=== PATIENT | female | born 1965 | race Two or more races ===

== ENCOUNTER 2024-08-03 10:21 | Observation (INO) | payer MEDICAID, SELFPAY ==
[2024-08-03] VITALS (15 sets, daily range): BP systolic 83–118; BP diastolic 59–95; PULSE 50–146; RESP 16–96; TEMP 36.3–36.6; O2SAT 95–99; BMI 14.1; BMI 32.8
--- NOTE | 2024-08-03 10:25 | EKG_ITS ---
[facility] Test Date: 2024-08-03 Pat Name: ROGERS STRONG Department: Room: - Gender: Female Chief Program Officer: : 1965 Requested By: German Loza (VILMA) Order Number: [id number] Reading MD: German Loza (WOOD TANK BUILDER) Measurements Intervals [place] Rate: 136 P: IN: QRS: -5 QRSD: 94 T: 45 QT: 321 QTc: 485 Interpretive Statements ATRIAL FLUTTER/TACHYCARDIA WITH RAPID VENTRICULAR RESPONSE NONSPECIFIC ST & T-WAVE ABNORMALITY ABNORMAL RHYTHM ECG Compared to ECG 05/28/2024 11:35:31 T-wave abnormality now present Intraventricular conduction delay no longer present /store/S0/[id number].pdf
--- NOTE | 2024-08-03 10:27 | XR_ITS ---
Examination: AP chest single view Technique one AP portable upright chest single view Exam date and time: August 03, 2024 1053 hours INDICATIONS: Chest pain today history atrial fibrillation FINDINGS: Normal heart size Accentuation basilar bronchovascular markings. No pulmonary edema or pneumonia Moderate osteopenia IMPRESSION: Basilar bronchitis pattern
[2024-08-03 10:59] LABS: Basophils # (Auto) 0.1 Thou/mm3 (0.0-0.2); Basophils % (Auto) 0 % (0-2.5); Eosinophils % (Auto) 0 % (0-10); Hemoglobin 12.2 g/dL (12.0-16.0); Immature Granulocytes % (Auto) 1 % (0-0); Immature Granulocytes Auto 0.07 Thou/mm3 (0.00-0.00); Lymphocytes # (Auto) 2.7 Thou/mm3 (1.0-4.8); Lymphocytes % (Auto) 18 % (10-50); Mean Corpuscular Hemoglobin 20.7 pg (25.0-35.0); Mean Corpuscular Volume 63 fL (80-100); Monocytes # (Auto) 0.9 Thou/mm3 (0.0-0.8); Monocytes % (Auto) 6 % (0-12); Neutrophils % (Auto) 74 % (37-80); Nucleated Red Blood Cell # 0.14 Thou/mm3 (0.00-0.00); Nucleated Red Blood Cell % 1 /100 WBC (0); Platelet Count 248 Thou/mm3 (140-440); RDW Standard Deviation 34.3 fL (36.4-46.3); Red Blood Count 5.88 Miln/mm3 (4.00-5.20); White Blood Count 14.9 Thou/mm3 (3.6-11.0)
[2024-08-03 11:07] LABS: Alanine Aminotransferase 22 U/L (10-49); Albumin, Serum 4.8 gm/dL (3.5-5.0); Albumin/Globulin Ratio 1.9 (1.2-2.2); Alkaline Phosphatase 93 U/L (46-116); Anion Gap 9 (7-16); Aspartate Amino Transferase 18 U/L (0-34); BUN/Creatinine Ratio 13 Ratio (12-20); Bilirubin,Total 0.9 mg/dL (0.3-1.2); Blood Urea Nitrogen 14 mg/dL (9-23); Calcium 9.7 mg/dL (8.3-10.6); Calcium (Corrected) 9.7 mg/dL (8.5-10.1); Carbon Dioxide 24.3 mMol/L (20.0-31.0); Chloride 106 mMol/L (98-107); Creatinine (Component) 1.1 mg/dL (0.6-1.3); Globulin 2.5 gm/dL (2.3-3.5); Glucose 125 mg/dL (74-106); Magnesium 2.2 mg/dL (1.6-2.6); Osmolality,Calculated 279 (275-295); Potassium 4.2 mMol/L (3.4-5.1); Sodium 139 mMol/L (136-145); Total Protein 7.3 gm/dL (5.7-8.2); Troponin I 0.022 ng/mL (0.0-0.045); eGFR 58 See Note
--- NOTE | 2024-08-03 11:07 | PC.NURSE ---
PT PRESENTS TO THE ED WITH COMPLAINTS OF HIGH HR. PT HAS A HX OF SVT AND AFIB. PER FAMILY SHE HAD A RECENT SURGERY TO TRY AND FIX IT- PT SEES CARDIO IN ANIMAS. PT IS ALERT AND ORIENTED, PLACED ON SENIOR CYTOTECHNOLOGIST, 2 IVS PLACED. EKG DONE AND SHOWN TO MD. NO OTHER COMPLAINTS AT THIS TIME. WILL CON TO MONITOR.
[2024-08-03] MEDS: SODIUM CHLORIDE 0.9% 500 ML 500 ML 999 ML IV ×2 (11:47→14:59)
[2024-08-03] MEDS: DILTIAZEM INJ 5 MG/ML VIAL 5 ML 15 MG IV (11:48)
[2024-08-03] MEDS: DILTIAZEM 30 MG TABLET PO (11:48)
--- NOTE | 2024-08-03 13:58 | EDNOTE_ITS ---
ED General RME/HPI General Chief complaint: Chest Pain Stated complaint: HEART BEATING FAST, HX A-FIB Time Seen by Provider: 08/03/24 11:11 Arrival date/time: 08/03/24 10:21 RME / HPI RME / HPI narrative: 59-year-old female with a history of SVT, atrial fibrillation, status post ablation 3 months ago, who presents to the emergency department with recurrence of palpitations and now she feels generalized weakness and difficulty walking. She denies chest pain. She denies nausea vomiting or diarrhea. She states she has a chronic cough due to her smoking, that has not recently worsened. Related Data Allergies Allergy/AdvReac Type Severity Reaction Status Date / Time No Known Allergies Allergy Verified 08/03/24 10:21 Review of Systems Review of Systems Systems Reviewed: All systems reviewed, normal except as documented Past Medical History Past Medical History CARDIAC: Positive Cardiac Disorders and Atrial Fibrillation; Negative Congestive Heart Failure RESPIRATORY: Negative Chronic Obstructive Pulmonary Disease (COPD) GENITOURINARY: Negative Renal Disease ENDOCRINE: Negative Diabetes Mellitus Type 1 or Diabetes Mellitus Type 2 Social History SMOKING STATUS: Current every day smoker SUBSTANCE USE: does not use ED Exam Narrative Physical exam: GENERAL APPEARANCE: AxOx4, generally well-appearing, no acute distress. HEENT: NC, AT. MMM. EOMI, clear conjunctiva, oropharynx clear. NECK: Supple without lymphadenopathy. No stiffness or restricted ROM. HEART: Normal rate and regular rhythm, normal S1/S1, no m/r/g LUNGS: CTAB, moving air well. No crackles or wheezes are heard. ABDOMEN: Soft, nontender, nondistended with good bowel sounds heard. BACK: No midline C/T/L spine pain or deformity, No CVAT, no obvious deformity. EXTREMITIES: Without cyanosis, clubbing or edema. MUSCULOSKELETAL: FROM of all major joints, no chest tenderness NEUROLOGICAL: Grossly nonfocal. Alert and oriented, moving all 4 extremities. CN not formally tested but appear grossly intact. Observed to ambulate with normal gait. Skin: Warm and dry without any rash. Course Quality Measures none Orders Category Date Time Status Senior Cyber Security Analyst NOW Care 08/03/24 10:25 Active EKG (ED ONLY) *Do not use* NOW Care 08/03/24 10:25 Completed Insert IV NOW Care 08/03/24 10:28 Active Consult to Cardiology Stat Cons 08/03/24 14:22 Ordered EKG (ED Only) Stat Exams 08/03/24 10:25 Draft XR chest 1V portable Stat Exams 08/03/24 10:27 Completed CBC Stat Lab 08/03/24 10:40 Completed Comprehensive Metabolic Panel Stat Lab 08/03/24 10:40 Completed Magnesium Stat Lab 08/03/24 10:40 Completed Partial Thromboplastin Time AM DRAW Lab 08/05/24 05:00 Ordered Partial Thromboplastin Time Stat Lab 08/03/24 15:33 Completed Prothrombin Time with INR AM DRAW Lab 08/05/24 05:00 Ordered Prothrombin Time with INR Stat Lab 08/03/24 15:33 Completed Troponin I Stat Lab 08/03/24 10:40 Completed Troponin I Stat Lab 08/03/24 16:01 Completed Amiodarone 150 mg Ivpb [Nexterone Ivpb] Med 08/03/24 14:11 Discontinued 150 mg in 100 ml IV 600 mls/hr Amiodarone 360 mg Ivpb [Nexterone Ivpb] Med 08/03/24 20:09 Discontinued 360 mg in 200 ml IV 16.667 mls/hr Amiodarone 360 mg Ivpb [Nexterone Ivpb] Med 08/03/24 14:09 Discontinued 360 mg in 200 ml IV 33.333 mls/hr Diltiazem Inj [Cardizem Inj] Med 08/03/24 11:27 Discontinued 15 mg IV X1 ONE Diltiazem [Cardizem] Med 08/03/24 11:27 Discontinued 30 mg PO X1 ONE Heparin Inj Med 08/03/24 14:54 Discontinued 2,450 unit IV X1 ONE Heparin/D5w 25K 250 ML Ivpb [Heparin in D5w Ivpb] Med 08/03/24 15:00 Discontinued 25,000 unit in 250 ml IV 12 units/kg/hr Sodium Chloride 0.9% 500 ml [Ns] 500 ml Med 08/03/24 11:30 Discontinued IV 999 mls/hr Sodium Chloride 0.9% 500 ml [Ns] 500 ml Med 08/03/24 14:09 Discontinued IV 999 mls/hr Reevaluation(s) Reevaluation #1: After diltiazem push and oral diltiazem, 500 L IV fluids, patient still feels very tired, unable to get out of bed. Heart rate is 130, systolic blood pressures in the 90s with a map of 72. Time: 14:00 Vital Signs Vital signs: Vital Signs Temperature 97.8 F 08/03/24 10:35 Pulse Rate 146 H 08/03/24 10:35 Respiratory Rate 18 08/03/24 10:35 Blood Pressure 85/62 L 08/03/24 10:35 Pulse Oximetry (%) 99 08/03/24 10:35 Oxygen Delivery Method Room Air 08/03/24 10:35 SpO2 99% on room air, not hypoxic MDM Patient data External records reviewed:: [facility] previous records Clinical information provided by:: patient and spouse Social determinants that could affect healthcare access:: none Patient has the following chronic illnesses:: Atrial fibrillation How is presenting disease/condition affected by chronic disease/condition?: c aused by Evaluation data The following diagnostics were reviewed and interpreted by me:: lab results, radiology exam(s) and EKG tracing(s) Lab and/or radiology exams considered but not ordered:: None Interpretation Summary: As per narrative Medications Medications considered but not ordered:: None Medication administrations:: Medication Administration History Acetaminophen (Acetaminophen 325 Mg Tablet) 650 mg PO Q6H PRN PRN Reason: Pain and Fever >101.5 Stop: 09/02/24 15:02 Last Admin: 08/03/24 23:00 Dose: 650 mg Documented By: TRINA Amiodarone HCl (Amiodarone Hcl 200 Mg Tablet) 200 mg PO QDAY [facility] Stop: 09/03/24 08:59 Ondansetron HCl (Ondansetron Inj 2 Mg/Ml Inj 2 Ml) 4 mg IV Q6H PRN; Protocol PRN Reason: NAUSEA OR VOMITING Stop: 09/02/24 15:02 Pantoprazole Sodium (Pantoprazole 40 Mg Tablet) 40 mg PO QDAY POWER Stop: 09/02/24 15:14 Last Admin: 08/03/24 17:21 Dose: 40 mg Documented By: JOSUE Sennosides (Senna Tablet) 1 tab PO QDAY PRN; Protocol PRN Reason: constipation Stop: 09/02/24 15:02 Discontinued Medications Diltiazem HCl (Diltiazem 30 Mg Tablet) 30 mg PO X1 ONE Stop: 08/03/24 11:28 Last Admin: 08/03/24 11:48 Dose: 30 mg Documented By: JOSUE Diltiazem HCl (Diltiazem Inj 5 Mg/Ml Vial 5 Ml) 15 mg IV X1 ONE Stop: 08/03/24 11:28 Last Admin: 08/03/24 11:48 Dose: 15 mg Documented By: JOSUE Guaifenesin (Guaifenesin Syrup 200 Mg/10 Ml Udc) 100 mg PO X1 ONE; Protocol Stop: 08/03/24 22:48 Last Admin: 08/03/24 23:00 Dose: 100 mg Documented By: TRINA Heparin Sodium (Porcine) (Heparin Sod Inj 5000 Unit/Ml Vial) 2,450 unit 60 unit/kg (2450 unit) IV X1 ONE; Protocol Stop: 08/03/24 14:55 Last Admin: 08/03/24 17:17 Dose: 2,450 unit Documented By: JOSUE Co-signed By: Sodium Chloride (Ns) 500 mls @ 999 mls/hr IV .Q31M ONE Stop: 08/03/24 12:00 Last Infusion: 08/03/24 13:25 Dose: Infused Documented By: Admin: 08/03/24 11:47 Dose: 999 mls/hr Documented By: JOSUE Sodium Chloride (Ns) 500 mls @ 999 mls/hr IV .Q31M ONE Stop: 08/03/24 14:39 Last Infusion: 08/03/24 17:12 Dose: Infused Documented By: Admin: 08/03/24 14:59 Dose: 999 mls/hr Documented By: JOSUE Amiodarone HCl/Dextrose (Nexterone Ivpb) 150 mg in 100 mls @ 600 mls/hr IV .Q10M ONE Stop: 08/03/24 14:20 Last Infusion: 08/03/24 17:12 Dose: Infused Documented By: Admin: 08/03/24 14:49 Dose: 600 mls/hr Documented By: ARF Amiodarone HCl/Dextrose (Nexterone Ivpb) 360 mg in 200 mls @ 33.333 mls/hr IV .Q6H ONE Stop: 08/03/24 20:08 Last Infusion: 08/03/24 19:06 Dose: 0 mls/hr Documented By: Admin: 08/03/24 14:57 Dose: 33.333 mls/hr Documented By: ARF Amiodarone HCl/Dextrose (Nexterone Ivpb) 360 mg in 200 mls @ 16.667 mls/hr IV .Q12H POWER Stop: 08/04/24 20:08 Heparin Sodium/Dextrose (Heparin In D5w Ivpb) 25,000 unit in 250 mls @ 4.899 mls/hr IV .Q24H POWER; Protocol Stop: 08/17/24 14:59 Last Titration: 08/03/24 18:53 Dose: 0 units/kg/hr, 0 mls/hr Documented By: ARF Co-signed By: ASUNCION Admin: 08/03/24 17:18 Dose: 12 units/kg/hr, 4.899 mls/hr Documented By: ARF Co-signed By: DO see above Consultations Consultation(s) initiated? (list below): Yes Consultation #1 (Physician, Specialty, Details): Cardiology, Dr. Fuentes, we discussed case at length and recommends trying either metoprolol or diltiazem, if symptoms improve she can be discharged to double her amiodarone and follow-up with Dr. Haor Time: 11:20 Consultation #2 (Physician, Specialty, Details): Cardiology, Dr. Mayer, we reviewed her response to diltiazem and IV fluids, or in fact the lack of response, persistent hypotension, and recommend starting amiodarone drip and admit Time: 14:00 Diagnosis Differential Diagnosis ED Complaint MDM: A-fib with RVR, atrial flutter, SVT, hypokalemia, hypomagnesemia Most likely diagnosis given after review of the tests above:: As noted below. Admission Indicated Admission indicated?: indicated Explain why admission is indicated or not indicated:: Patient has no emergent abnormalities on his studies and can be managed on an outpatient basis. Admission Request Was there a request for admission?: Yes Admission Attestation Admission request attestation: Discussed case with [Dent] from Hospitalist service regarding admission. Discussed patients ED course, exam findings, labs, and radiology results. The Hospitalist [agrees] to accept the patient for admission. Disposition Plan Disposition Plan: Admit Medical Decision Making Differential Diagnosis Differential Diagnosis: A-fib with RVR, atrial flutter, SVT, hypokalemia, hypomagnesemia Lab Data 08/04/24 03:36 08/04/24 03:36 Labs: Lab Results 08/03/24 Range/Units 10:40 WBC 14.9 H (3.6-11.0) Thou/mm3 RBC 5.88 H (4.00-5.20) Miln/mm3 Hgb 12.2 (12.0-16.0) g/dL Hct 37.0 (36.0-46.0) % MCV 63 L (80-100) fL MCH 20.7 L (25.0-35.0) pg MCHC 33.0 (31.0-37.0) g/dl RDW Std Deviation 34.3 L (36.4-46.3) fL Plt Count 248 (140-440) Thou/mm3 Neut % (Auto) 74 (37-80) % Lymph % (Auto) 18 (10-50) % [place] % (Auto) 6 (0-12) % Eos % (Auto) 0 (0-10) % Baso % (Auto) 0 (0-2.5) % Neut # (Auto) 11.0 H (1.8-7.7) Thou/mm3 Lymph # (Auto) 2.7 (1.0-4.8) Thou/mm3 [place] # (Auto) 0.9 H (0.0-0.8) Thou/mm3 Eos # (Auto) 0.0 (0.0-0.5) Thou/mm3 Baso # (Auto) 0.1 (0.0-0.2) Thou/mm3 Immature Gran # (Auto) 0.07 H (0.00-0.00) Thou/mm3 Absolute Nucleated RBC 0.14 H (0.00-0.00) Thou/mm3 Immature Gran % 1 H (0-0) % Nucleated RBC % 1 H (0) /100 WBC Sodium 139 (136-145) mMol/L Potassium 4.2 (3.4-5.1) mMol/L Chloride 106 (98-107) mMol/L Carbon Dioxide 24.3 (20.0-31.0) mMol/L Anion Gap 9 (7-16) BUN 14 (9-23) mg/dL Creatinine 1.1 (0.6-1.3) mg/dL Estim Creat Clear Calc Not Performed. eGFR 58 L (60 - ) See Note BUN/Creatinine Ratio 13 (12-20) Ratio Glucose 125 H (74-106) mg/dL Calculated Osmolality 279 (275-295) Calcium 9.7 (8.3-10.6) mg/dL Corrected Calcium 9.7 (8.5-10.1) mg/dL Magnesium 2.2 (1.6-2.6) mg/dL Total Bilirubin 0.9 (0.3-1.2) mg/dL AST 18 (0-34) U/L ALT 22 (10-49) U/L Alkaline Phosphatase 93 (46-116) U/L Troponin I 0.022 (0.0-0.045) ng/mL Total Protein 7.3 (5.7-8.2) gm/dL Albumin 4.8 (3.5-5.0) gm/dL Globulin 2.5 (2.3-3.5) gm/dL Albumin/Globulin Ratio 1.9 (1.2-2.2) Critical Care Time Critical Care Time Critical Care Time: Yes Total Critical Care Time (min.): 35 Attestation: Excluding billable procedures for the rapid response, analysis, management, deliberation with specialist, treatment, and documentation to prevent the very possible risk of cardiovascular decompensation and/or Discharge Plan Plan Patient Disposition: Admit Acute Care w/in Hospital Problem List Clinical Impression: Atrial flutter with rapid ventricular response, Weakness
[2024-08-03] MEDS: AMIODARONE 150 MG IVPB 150 MG/100 ML BAG 600 MG IV (14:49)
[2024-08-03] MEDS: AMIODARONE 360 MG IVPB 360 MG/200 ML BAG 33.333 MG IV (14:57)
--- NOTE | 2024-08-03 15:47 | ESCONSULT_ITS ---
<Statement entered by Asif Norton MD - 08/04/24 12:17> The patient is evaluated by me in the emergency room by me in the emergency room along with resident physician PGY 2 Dr. Harveyiq The patient has history of atrial flutter paroxysmal episodes with ablation history came to the hospital atrial flutter rapid rate difficult to control amiodarone IV given converted to sinus rhythm bradycardia stable the patient remained stable can be discharged tomorrow to have outpatient follow-up with almond pan finisher she already has. Mild troponin elevation not unusual with tachycardia type II troponin no further workup needed. I evaluated the patient all essential complaints the consultation report is reviewed agree with the treatment plan recommendations HPI Data of Consult Consult date: 08/03/24 Requesting Physician: Baljeet Fuentes DO Admitting Provider: Baljeet Fuentes DO Attending Provider: Baljeet Fuentes DO Primary Care Provider: Hugo Michaels MD Consult Narrative Reason for consult: Atrial flutter with RVR History of present illness: This 59-year-old female with a history of SVT, atrial fibrillation, status post ablation 3 months ago, who presents to the emergency department with recurrence of palpitations and now she feels generalized weakness and difficulty walking. She denies chest pain. She denies nausea vomiting or diarrhea. She states she has a chronic cough due to her smoking, that has not recently worsened. In the ED, patient was mildly hypotensive with blood pressure of 85/62, pulse 146, respiratory rate 18 and afebrile. She was saturating well on room air. Labs showed leukocytosis, stable hemoglobin and platelets. Chemistry panel showed stable electrolytes. Troponin I went up from 0.02 to 0.087. Thyroid functions within normal limits. EKG showed heart rate 136 with atrial flutter. QTc 485. PMH: As above Allergies: NKDA Home medications:Amiodarone 200 mg once a day, valsartan 80 mg once a day, folic acid 1 mg once a day, was not taking Eliquis 08/03/2024: Patient was seen and examined at the bedside. Patient reported having palpitations and generalized weakness. She was not taking anticoagulation for long time. Patient was given diltiazem 30 mg p.o. and IV diltiazem 15 mg x 1 in the ED. Cardiology team was consulted for atrial flutter with RVR. Patient was started on heparin drip and amiodarone per protocol however she converted to sinus rhythm and went bradycardia therefore amiodarone and heparin was discontinued. Primary team was updated that she can be discharged tomorrow on her home amiodarone 200 mg PO once a day and no need of anticoagulation as her [id number] score is 1. She may need another ablation if she goes in A. Fib with Rvr. No plans for cardioversion. cc:: cc: Baljeet Fuentes, Review of Systems Review of Systems Systems Reviewed: All systems reviewed, normal except as documented Past Medical History Past Medical History CARDIAC: Positive Cardiac Disorders; Negative Congestive Heart Failure RESPIRATORY: Negative Chronic Obstructive Pulmonary Disease (COPD) GENITOURINARY: Negative Renal Disease ENDOCRINE: Negative Diabetes Mellitus Type 1 or Diabetes Mellitus Type 2 Social History SMOKING STATUS: Current every day smoker SUBSTANCE USE: does not use Exam Vital Signs Temp Pulse Resp BP Pulse Ox O2 Del Method 97.3 F 121 H 19 102/73 95 Room Air 08/03/24 15:17 08/03/24 15:17 08/03/24 15:17 08/03/24 15:17 08/03/24 15:17 08/03/24 15:17 Narrative Exam GENERAL APPEARANCE: AxOx4, generally well-appearing female no acute distress. HEENT: NC, AT. MMM. EOMI, clear conjunctiva, oropharynx clear. NECK: Supple without lymphadenopathy. No stiffness or restricted ROM. HEART: Irregular rate and irregular rhythm, normal S1/S2, no m/r/g LUNGS: CTAB, moving air well. No crackles or wheezes are heard. ABDOMEN: Soft, nontender, nondistended with good bowel sounds heard. BACK: No CVAT, no obvious deformity. EXTREMITIES: Without cyanosis, clubbing or edema. NEUROLOGICAL: Grossly nonfocal. Alert and oriented, moving all 4 extremities. CN not formally tested but appear grossly intact. Observed to ambulate with normal gait. Skin: Warm and dry without any rash. Psych: Appropriate mood and affect Results Labs 08/03/24 10:40 08/03/24 10:40 Labs: Short CBC 08/03/24 Range/Units 10:40 WBC 14.9 H (3.6-11.0) Thou/mm3 Hgb 12.2 (12.0-16.0) g/dL Hct 37.0 (36.0-46.0) % Plt Count 248 (140-440) Thou/mm3 BMP 08/03/24 10:40 Sodium 139 Potassium 4.2 Chloride 106 Carbon Dioxide 24.3 BUN 14 Creatinine 1.1 Glucose 125 H Calcium 9.7 Cardiac Enzymes 08/03/24 Range/Units 10:40 Troponin I 0.022 (0.0-0.045) ng/mL Liver Function 08/03/24 Range/Units 10:40 Total Bilirubin 0.9 (0.3-1.2) mg/dL AST 18 (0-34) U/L ALT 22 (10-49) U/L Alkaline Phosphatase 93 (46-116) U/L Albumin 4.8 (3.5-5.0) gm/dL Quality Measures Quality Measures none Medications Home Medications and Allergies Allergies Allergy/AdvReac Type Severity Reaction Status Date / Time No Known Allergies Allergy Verified 08/03/24 10:21 Visit Medications Acetaminophen (Acetaminophen 325 Mg Tablet) 650 mg PO Q6H PRN PRN Reason: Pain and Fever >101.5 Stop: 09/02/24 15:02 Amiodarone HCl/Dextrose (Nexterone Ivpb) 360 mg in 200 mls @ 33.333 mls/hr IV .Q6H ONE Stop: 08/03/24 20:08 Last Admin: 08/03/24 14:57 Dose: 33.333 mls/hr Amiodarone HCl/Dextrose (Nexterone Ivpb) 360 mg in 200 mls @ 16.667 mls/hr IV .Q12H POWER Stop: 08/04/24 20:08 Heparin Sodium/Dextrose (Heparin In D5w Ivpb) 25,000 unit in 250 mls @ 4.899 mls/hr IV .Q24H POWER; Protocol Stop: 08/17/24 14:59 Ondansetron HCl (Ondansetron Inj 2 Mg/Ml Inj 2 Ml) 4 mg IV Q6H PRN; Protocol PRN Reason: NAUSEA OR VOMITING Stop: 09/02/24 15:02 Pantoprazole Sodium (Pantoprazole 40 Mg Tablet) 40 mg PO QDAY POWER Stop: 09/02/24 15:14 Sennosides (Senna Tablet) 1 tab PO QDAY PRN; Protocol PRN Reason: constipation Stop: 09/02/24 15:02 Discontinued Medications Diltiazem HCl (Diltiazem 30 Mg Tablet) 30 mg PO X1 ONE Stop: 08/03/24 11:28 Last Admin: 08/03/24 11:48 Dose: 30 mg Diltiazem HCl (Diltiazem Inj 5 Mg/Ml Vial 5 Ml) 15 mg IV X1 ONE Stop: 08/03/24 11:28 Last Admin: 08/03/24 11:48 Dose: 15 mg Heparin Sodium (Porcine) (Heparin Sod Inj 5000 Unit/Ml Vial) 2,450 unit 60 unit/kg (2450 unit) IV X1 ONE; Protocol Stop: 08/03/24 14:55 Sodium Chloride (Ns) 500 mls @ 999 mls/hr IV .Q31M ONE Stop: 08/03/24 12:00 Last Infusion: 08/03/24 13:25 Dose: Infused Sodium Chloride (Ns) 500 mls @ 999 mls/hr IV .Q31M ONE Stop: 08/03/24 14:39 Last Admin: 08/03/24 14:59 Dose: 999 mls/hr Amiodarone HCl/Dextrose (Nexterone Ivpb) 150 mg in 100 mls @ 600 mls/hr IV .Q10M ONE Stop: 08/03/24 14:20 Last Admin: 08/03/24 14:49 Dose: 600 mls/hr Assessment & Plan Plan This 59-year-old female with a history of SVT, atrial fibrillation, status post ablation 3 months ago, who presents to the emergency department with recurrence of palpitations and now she feels generalized weakness and difficulty walking.Chemistry panel showed stable electrolytes. Troponin I went up from 0.02 to 0.087. EKG showed heart rate 136 with atrial flutter. QTc 485. Cardiology team consulted for atrial flutter with RVR. # Atrial flutter with RVR not on anticoagulation reverted to sinus rhythm # Hx of SVT and A-fib status post ablation 3 months ago ? Patient presented with palpitations and generalized weakness. In the ED, patient was hypotensive, tachycardic pulse 146. She was afebrile and saturating well on room air. ? EKG showed atrial flutter with heart rate 136, QTc 485. ? In the ED, patient was given diltiazem 15 mg x 1 IV and diltiazem 30 mg p.o. x 1. Heart remained uncontrolled. ? Troponin I was negative on admission up trended to 0.087. Plan: ? Initially was on heparin drip and amiodarone per protocol however she converted to sinus rhythm and went bradycardia therefore amiodarone and heparin was discontinued. Primary team was updated that she can be discharged tomorrow on her home amiodarone 200 mg PO once a day and no need of anticoagulation as her [id number] score is 1. She may need another ablation if she goes in A. Fib with Rvr. No plans for cardioversion. ? Replete electrolytes as necessary ? Keep magnesium above 2 and potassium above 4 ? Trend troponin I and stop trended once downtrended #NSTEMI Type II likely supply demand ischemia # Leukocytosis Rest of the management as per primary care team. Thank you very much for consulting cardiology team. No plans for cardioversion. DC Amiodarone and Heparin drip. Pt can D/C on amiodarone 200 mg once a day tomorrow. Plan of care discussed with instructional developer, Dr. Errol Koroma MD, PGY 2
--- NOTE | 2024-08-03 16:10 | PD.RESHP ---
Documentation for date of: 08/03/24 [facility] History of Present Illness Chief complaint: Atrial fibrillation with RVR History of present illness: Ms. Bejarano is a 59-year-old hebrew speaking female with past medical history of atrial fibrillation, hypertension and thyroid nodule who presented to [facility] with a chief complaint of palpitations. Patient reported that her symptoms started at 2 AM earlier during the day when she started experiencing palpitations in her chest and had some shortness of breath along with chest pain. Patient complained of progression of symptoms and she presented to the ED, in ED her EKG was significant for atrial fibrillation. Patient seems to be in acute distress secondary to atrial fibrillation, complains of headaches, she reports following up with Dr. Joseluis Michaels employee health nurse in [place] who did not an ablation for atrial fibrillation about 1 month ago and she has an appointment with her primary employee health nurse in a.m. Cardiology was consulted in emergency department and patient was started on amiodarone drip and heparin drip with the possibility of electrocardioversion in a.m. if patient does not convert. Patient otherwise denies any other medical problems, denies any history of stroke and reports compliance with her medications at home that are Valsartan, Eliquis and amiodarone. ED Course: ED Vitals: On presentation in ED BP 85/62, P146, RR 18, temp 97.8, O2 sat 99 on room air ED Labs: ED labs significant for WBC 14.9, RBC 5.88, MCV 63, MCH 20.7, GFR 58, glucose 125. ED Imaging: Chest x-ray in ED shows bronchitis pattern, EKG significant for atrial fibrillation ED Treatment: Patient was given diltiazem 30 mg p.o. and diltiazem 15 mg IV was given about a liter of NS. Cardiology was consulted and patient was started on amiodarone drip. Review of Systems Review of Systems Narrative Review of Systems: ROS: -CONSTITUTIONAL: Denies weight loss, fever and chills. -HEENT: Denies changes in vision and hearing. Positive for headache -RESPIRATORY: Denies cough. Positive for shortness of breath -CV: Positive for palpitations and Chest Pain. -GI: Denies abdominal pain, nausea, vomiting,constipation and diarrhea. -: Denies dysuria and urinary frequency. -MSK: Denies myalgia and joint pain. -SKIN: Denies rash and pruritus. -NEUROLOGICAL: Denies headache and syncope. -PSYCHIATRIC: Denies recent changes in mood. Denies anxiety and depression. Past Medical History Past Medical History Comments PMH COMMENT: PMH: Positive for hypertension and atrial fibrillation PSHx: Ablation surgery for A-fib 1 month ago Allergies: No known allergies Social history: -Smoking: Denies -Alcohol Use: Denies -Illicit Drug Use: Denies -Martial Status: Exam Vital Signs Temp Pulse Resp BP Pulse Ox O2 Del Method 97.3 F 121 H 19 102/73 95 Room Air 08/03/24 15:17 08/03/24 15:17 08/03/24 15:17 08/03/24 15:17 08/03/24 15:17 08/03/24 15:17 Narrative Exam Physical Exam General: Awake and in no acute distress. Conversational and non-toxic appearing. HEENT: Normocephalic, atraumatic, mucous membranes moist. Bounding carotid pulses noted. Heart: Irregular rate and A-fib rhythm, no murmurs. Lungs: Clear to auscultation with no wheezing or crackles. Abdomen: Soft, nondistended, nontender, positive bowel sounds. ?No guarding or rebound tenderness. Neurologic: Alert and oriented x3, no gross neurological deficit, and patient able to move all 4 extremities. Extremities: No edema. Skin: No rash or ecchymoses. Results: Labs 08/03/24 10:40 08/03/24 10:40 Labs: Short CBC 08/03/24 Range/Units 10:40 WBC 14.9 H (3.6-11.0) Thou/mm3 Hgb 12.2 (12.0-16.0) g/dL Hct 37.0 (36.0-46.0) % Plt Count 248 (140-440) Thou/mm3 BMP 08/03/24 10:40 Sodium 139 Potassium 4.2 Chloride 106 Carbon Dioxide 24.3 BUN 14 Creatinine 1.1 Glucose 125 H Calcium 9.7 Cardiac Enzymes 08/03/24 Range/Units 10:40 Troponin I 0.022 (0.0-0.045) ng/mL Liver Function 08/03/24 Range/Units 10:40 Total Bilirubin 0.9 (0.3-1.2) mg/dL AST 18 (0-34) U/L ALT 22 (10-49) U/L Alkaline Phosphatase 93 (46-116) U/L Albumin 4.8 (3.5-5.0) gm/dL Quality Measures Quality Measures VTE prophylaxis Medications Home Medications and Allergies Allergies Allergy/AdvReac Type Severity Reaction Status Date / Time No Known Allergies Allergy Verified 08/03/24 10:21 Visit Medications Acetaminophen (Acetaminophen 325 Mg Tablet) 650 mg PO Q6H PRN PRN Reason: Pain and Fever >101.5 Stop: 09/02/24 15:02 Amiodarone HCl/Dextrose (Nexterone Ivpb) 360 mg in 200 mls @ 33.333 mls/hr IV .Q6H ONE Stop: 08/03/24 20:08 Last Admin: 08/03/24 14:57 Dose: 33.333 mls/hr Amiodarone HCl/Dextrose (Nexterone Ivpb) 360 mg in 200 mls @ 16.667 mls/hr IV .Q12H POWER Stop: 08/04/24 20:08 Heparin Sodium/Dextrose (Heparin In D5w Ivpb) 25,000 unit in 250 mls @ 4.899 mls/hr IV .Q24H POWER; Protocol Stop: 08/17/24 14:59 Ondansetron HCl (Ondansetron Inj 2 Mg/Ml Inj 2 Ml) 4 mg IV Q6H PRN; Protocol PRN Reason: NAUSEA OR VOMITING Stop: 09/02/24 15:02 Pantoprazole Sodium (Pantoprazole 40 Mg Tablet) 40 mg PO QDAY POWER Stop: 09/02/24 15:14 Sennosides (Senna Tablet) 1 tab PO QDAY PRN; Protocol PRN Reason: constipation Stop: 09/02/24 15:02 Discontinued Medications Diltiazem HCl (Diltiazem 30 Mg Tablet) 30 mg PO X1 ONE Stop: 08/03/24 11:28 Last Admin: 08/03/24 11:48 Dose: 30 mg Diltiazem HCl (Diltiazem Inj 5 Mg/Ml Vial 5 Ml) 15 mg IV X1 ONE Stop: 08/03/24 11:28 Last Admin: 08/03/24 11:48 Dose: 15 mg Heparin Sodium (Porcine) (Heparin Sod Inj 5000 Unit/Ml Vial) 2,450 unit 60 unit/kg (2450 unit) IV X1 ONE; Protocol Stop: 08/03/24 14:55 Sodium Chloride (Ns) 500 mls @ 999 mls/hr IV .Q31M ONE Stop: 08/03/24 12:00 Last Infusion: 08/03/24 13:25 Dose: Infused Sodium Chloride (Ns) 500 mls @ 999 mls/hr IV .Q31M ONE Stop: 08/03/24 14:39 Last Admin: 08/03/24 14:59 Dose: 999 mls/hr Amiodarone HCl/Dextrose (Nexterone Ivpb) 150 mg in 100 mls @ 600 mls/hr IV .Q10M ONE Stop: 08/03/24 14:20 Last Admin: 08/03/24 14:49 Dose: 600 mls/hr Assessment & Plan Plan Assessment and plan Summary:Ms. Bejarano is a 59-year-old hebrew speaking female with past medical history of atrial fibrillation, hypertension and thyroid nodule who presented to [facility] with a chief complaint of palpitations. Patient admitted for atrial fibrillation with RVR. # Palpitations # Atrial fibrillation with RVR # Chest pain # NSTEMI type I versus type II # Hypertension -Patient presented with chief complaint of palpitations that started at 2 AM in morning, patient also complains of chest pain shortness of breath and pressure-like sensation in the chest. -Patient's heart rate on presentation in ED was 146, EKG showed A-fib with RVR, patient has history of atrial fibrillation. -Patient had ablation for A-fib about a month ago, is taking amiodarone 200 once daily at home, patient on Eliquis 5 mg twice daily, last dose this morning -Patient was given diltiazem 30 mg p.o. and 15 mg IV in ED, cardiology was consulted patient started on amiodarone drip. -Initial troponin in ED was negative, repeat positive for 0.087. -Patient takes valsartan at home 80 mg for hypertension Plan: -Continue amiodarone drip -Started on heparin drip, given heparin loading dose -N.p.o. after midnight, possibility of cardioversion tomorrow -Monitor vitals closely -Consulted cardiology Dr. Asif Norton, appreciate recommendations -Telemonitoring -Trend troponin every 6 hours -Hold valsartan, blood pressure soft -Follow hemoglobin A1c, TSH, free T4 and lipid panel in a.m. -Monitor CBC CMP # Microcytic hypochromic anemia -Consider outpatient workup -Follow CBC in a.m. DVT prophylaxis: Heparin drip GI prophylaxis: Not indicated Diet: Cardiac diet, n.p.o. after midnight Lines: Peripheral IV Code status: Full code Case discussed with Attending Dr. Alfredo Dent PGY1 Attending Provider Attestation/Addendum I have discussed and was present for the essential components of the history, physical examination, diagnosis, and treatment plan with the resident. I agree with the patient's care as documented by the resident and amended herein by me. Felice Fuentes DO. Patient seen and evaluated in the emergency department. In short, patient is a 84-[id number]-year-old German speaking female with a significant past medical history of atrial fibrillation status post ablation approximately 1 month ago, hypertension and thyroid nodule, presented to the ED with chief complaints of palpitations. Her symptoms began approximately 2 AM earlier in the day. In the ED, the patient was initially hypotensive with a BP of 85/62, pulse rate 146, significant labs included WBC of 14.9 with left shift, BMP largely unremarkable, troponin did slightly elevated at approximately 1600 at 0.087, chest x-ray demonstrated basilar bronchitis pattern and EKG demonstrated an atrial tachycardia, and seeming to go in and out of atrial fibrillation. Patient also had bounding carotids on physical examination and was visibly in distress. Of note the patient apparently had an appointment tomorrow with her belt changer, her has the name of the physician. Patient subsequently admitted for atrial fibrillation/flutter and NSTEMI, likely type II. Cardiology was consulted by the ED, the patient was eventually placed on an amiodarone drip in which she did become rate controlled, she actually became a bit bradycardic, cardiology notified. Per cardiology, the patient was also to be started on heparin drip. Of note, the patient does take Eliquis at home, she states she takes 2.5 mg however chart review states 5 mg twice daily as prescribed. Cardiology also plans for cardioversion tomorrow morning if needed. Of note, the patient does have an apparent thyroid nodule which her son stated she was going to have part of her thyroid removed. TSH ordered to evaluate. Will keep magnesium greater than 2, potassium greater than 4, n.p.o. after midnight. Although this document has been carefully reviewed, there may still be some phonetic and other typographical errors. These errors are purely grammatical due to imperfections in the software program and should not be construed in any way to compromise the substance of the patient's medical care during this visit.
[2024-08-03 16:21] LABS: INR 1.1 (0.9-1.3); Partial Thromboplastin Time 29.3 Seconds (22.0-36.0); Prothrombin Time 11.7 Seconds (9.0-12.2)
--- NOTE | 2024-08-03 16:33 | PC.NURSE ---
PT converted into SR. notified dr graves. pt feeling better, up to commode
[2024-08-03 16:35] LABS: Free T4 (Free Thyroxine) 1.52 ng/dL (0.89-1.76); Thyroid Stimulating Hormone 1.22 uIU/mL (0.55-4.78)
[2024-08-03 16:37] LABS: Troponin I 0.087 ng/mL (0.0-0.045)
--- NOTE | 2024-08-03 16:42 | PC.NURSE ---
PT SINUS GAMALIEL - CALLED DR TAVERA TO NOTIFY. HE WILL CALL DR PARRY AND UPDATE
[2024-08-03] MEDS: HEPARIN SOD INJ 5000 UNIT/ML VIAL 2450 UNIT IV (17:17)
[2024-08-03] MEDS: Heparin/D5w 25K 250 ML Ivpb 25,000 UNIT/250 ML BAG 4.899 UNIT IV (17:18)
[2024-08-03] MEDS: PANTOPRAZOLE 40 MG TABLET PO (17:21)
--- NOTE | 2024-08-03 18:52 | PC.NURSE ---
DR PARRY CAME TO SEE PT. HE ORDERED TO DC HEPARIN DRIP WELL AMNIODERONE DRIP. PT WILL BE ADMITTED AND MOST LIKEY DC IN THE AM.
[2024-08-03 20:04] LABS: Free T4 (Free Thyroxine) 1.38 ng/dL (0.89-1.76)
--- NOTE | 2024-08-03 22:10 | PC.NURSE ---
REPORT GIVEN TO BERNABE WALLACE. ALL QUESTIONS ASKED AND ANSWERED. PATIENT TRANSFERRED TO ROOM BY STAFF. NO DISTRESS NOTED.
[2024-08-03 22:39] LABS: Troponin I 0.289 ng/mL (0.0-0.045)
[2024-08-03] MEDS: guaiFENesin SYRUP 200 MG/10 ML UDC 100 MG PO (23:00)
[2024-08-03] MEDS: ACETAMINOPHEN 325 MG TABLET 650 MG PO (23:00)
[2024-08-04] VITALS (7 sets, daily range): BP systolic 105–136; BP diastolic 64–96; PULSE 50–54; RESP 14–94; TEMP 36–36.4; O2SAT 96–99
[2024-08-04 04:20] LABS: Basophils # (Auto) 0.1 Thou/mm3 (0.0-0.2); Basophils % (Auto) 1 % (0-2.5); Eosinophils # (Auto) 0.1 Thou/mm3 (0.0-0.5); Eosinophils % (Auto) 1 % (0-10); Hematocrit 31.1 % (36.0-46.0); Hemoglobin 10.3 g/dL (12.0-16.0); Immature Granulocytes % (Auto) 1 % (0-0); Immature Granulocytes Auto 0.05 Thou/mm3 (0.00-0.00); Lymphocytes # (Auto) 3.9 Thou/mm3 (1.0-4.8); Lymphocytes % (Auto) 38 % (10-50); Mean Corpuscular HGB Conc 33.1 g/dl (31.0-37.0); Mean Corpuscular Hemoglobin 20.8 pg (25.0-35.0); Mean Corpuscular Volume 63 fL (80-100); Monocytes # (Auto) 0.7 Thou/mm3 (0.0-0.8); Monocytes % (Auto) 7 % (0-12); Neutrophils # (Auto) 5.5 Thou/mm3 (1.8-7.7); Neutrophils % (Auto) 53 % (37-80); Nucleated Red Blood Cell # 0.06 Thou/mm3 (0.00-0.00); Nucleated Red Blood Cell % 1 /100 WBC (0); Platelet Count 159 Thou/mm3 (140-440); Red Blood Count 4.96 Miln/mm3 (4.00-5.20); White Blood Count 10.3 Thou/mm3 (3.6-11.0)
[2024-08-04 04:30] LABS: Path Review Blood Smear Sent to Pathologist
[2024-08-04 04:37] LABS: Glucose Estimated Average 91 mg/dL (80-131); Hemoglobin A1C 4.8 % Hgb (4.8-6.0)
[2024-08-04 04:41] LABS: Alanine Aminotransferase 15 U/L (10-49); Alkaline Phosphatase 77 U/L (46-116); Anion Gap 5 (7-16); Aspartate Amino Transferase 15 U/L (0-34); BUN/Creatinine Ratio 16 Ratio (12-20); Bilirubin,Total 0.8 mg/dL (0.3-1.2); Blood Urea Nitrogen 16 mg/dL (9-23); Calcium 8.9 mg/dL (8.3-10.6); Carbon Dioxide 24.4 mMol/L (20.0-31.0); Cardiac Risk Estimate 3.8 RATIO (3.7-5.6); Chloride 110 mMol/L (98-107); Cholesterol 161 mg/dL (132-200); Estimated Creatinine Clearance 69.2 mL/min (>60); Glucose 96 mg/dL (74-106); HDL Cholesterol 42 mg/dL (40-60); LDL Cholesterol,Calculated 106 mg/dL (0-130); Magnesium 2.2 mg/dL (1.6-2.6); Osmolality,Calculated 278 (275-295); Phosphorous 3.9 mg/dL (2.4-5.1); Potassium 4.2 mMol/L (3.4-5.1); Sodium 139 mMol/L (136-145); Total Protein 6.2 gm/dL (5.7-8.2); Triglycerides 64 mg/dL (30-150); eGFR > 60 See Note
[2024-08-04 04:42] LABS: Albumin, Serum 4.1 gm/dL (3.5-5.0); Calcium (Corrected) 8.9 mg/dL (8.5-10.1); Globulin 2.1 gm/dL (2.3-3.5)
[2024-08-04 04:43] LABS: Troponin I 0.264 ng/mL (0.0-0.045)
[2024-08-04] MEDS: PANTOPRAZOLE 40 MG TABLET PO (09:01)
--- NOTE | 2024-08-04 09:12 | PC.NURSE ---
Notified Dr Dent Amiodarone was not given this morning due to HR:51. No new orders given at this time.
--- NOTE | 2024-08-04 12:18 | ESDS_ITS ---
Planned Discharge Date 08/04/24 DS: Providers Provider Date of admission: 08/03/24 15:03 Primary care physician: Hugo Michaels MD Admitting Provider: Baljeet Fuentes DO Attending Provider on Admission: Baljeet Fuentes DO Consults: 08/03/24 14:22 Consult to Cardiology Stat Comment: Consulting Provider: Asif Norton Attending Provider on DC: Ismael Melton MD Discharging Provider: Ismael Melton MD DS: Diagnosis Problem List Completed Was Problem List Reviewed/Reconciled?: Yes Hospital Course Hospital Course Hospital course: The patient is a 59-year-old female with a history of hypertension, SVT, atrial fibrillation, status post ablation 3 months ago, who presents to the emergency department with recurrence of palpitations and shortness of breath. In the ED, patient was mildly hypotensive with blood pressure of 85/62, pulse 146, respiratory rate 18 and afebrile. She was saturating well on room air. Labs showed leukocytosis, otherwise unremarkable. Troponin I went up from 0.02 to 0.087 and downtrednded. Thyroid functions within normal limits. EKG showed heart rate 136 with atrial flutter. QTc 485. Patient was given diltiazem 30 mg p.o. and IV diltiazem 15 mg x 1 in the ED. Cardiology team was consulted for atrial flutter with RVR. Patient was started on heparin drip and amiodarone per protocol however she converted to sinus rhythm and went bradycardia therefore amiodarone and heparin was discontinued. Today, the patient is clinically and hemodynamically stable and has been cleared for discharge. She will continue on amiodarone 200mg daily as well as Eliquis 5mg daily due to a CHADVASC score of 2. She is recommended to follow up with her primary care provider within one week of discharge as well as her network systems consultant as soon as possible. Patient has been counseled that she might need another ablation if she goes into AFib/flutter with RVR again. #Afib/flutter with RVR #NSTEMI type II #History of hypertension Case was discussed with attending physician, Dr Linh Mendieta MD PGY-1 Status at Discharge Overall status at discharge: patient is back to baseline Time Spent with Patient Time attestation: Total time spent providing and/or coordinating discharge services:more than 30minutes Exam Vital Signs Temp Pulse Resp BP Pulse Ox O2 Del Method 96.8 F 54 L 18 136/76 H 97 Room Air 08/04/24 11:22 08/04/24 12:00 08/04/24 11:22 08/04/24 11:22 08/04/24 11:22 08/04/24 11:22 Narrative Exam GENERAL: AAOX3 NEURO: COMMODITY INDUSTRY ANALYST grossly intact, moves extremities x4 HEENT: Moist mucosa. Eyes open, symmetrical, & clear CARDIO: No chest pain on palpation. mildly bradycardic, regular, no obvious murmurs PULM: No noted coughing/dyspnea. Lungs CTA B/L GI: Abdomen soft, nondistended, no pain on palpation. BSx4 URO/HAND ENGRAVER:: No further abnormalities noted. SKIN/MSK/EXT: No wounds/rashes/edema/amputations, no pain on palpation. Pedal pulses present B/L Discharge Plan Plan Patient Disposition: HOME (Self Care) Care Plan Goals: Continue taking amiodarone 200mg daily Continue taking the blood thinner Eliquis at 5mg daily Follow up with your PCP within one week of dicharge Follow up with your network systems consultant as soon as possible Prescriptions/Referrals Prescriptions/Med Rec: Continued amiodarone 200 mg tablet Patient Comments: TAKE ONE TABLET BY MOUTH EVERY DAY FOR THE HEART valsartan 80 mg tablet Patient Comments: TAKE ONE TABLET BY MOUTH EVERY DAY FOR BLOOD PRESSURE folic acid 1 mg tablet Patient Comments: TAKE ONE TABLET BY MOUTH EVERY DAY VITAMIN Eliquis 5 mg tablet Patient Comments: TAKE ONE TABLET BY MOUTH TWICE DAILY FOR THE HEART Referrals: Hugo Michaels MD [Primary Care Provider] - Patient/Caregiver Discharge Instructions Education Materials: AFL/Afib Print Language: Serbian Stand Alone Forms: [employer] Award Info., Patient Portal Info Letter Discharge Order Discharge Orders: Discharge (Routine); Ordered 08/04/24 Ordered By: Francis Mendieta Quality Discharge Quality Measures VTE prophylaxis Attestestation Attestation I reviewed labs, imaging, EKG, home medications and prior available records. Face to face evaluation was performed by me. I have personally examined the patient and discussed assessment and plan with the IM team. I reviewed the resident note and agree with the plan with exceptions as below. Atrial fibrillation with RVR: Will discharge on p.o. amiodarone and p.o. Eliquis. Patient is status post ablation with her network systems consultant in [place] and has an appointment this afternoon. Will discharge to follow-up with her network systems consultant today. Elevated troponin: Likely type II non-STEMI in the setting of A-fib with RVR. Troponin peaked. Management as above. Outpatient follow-up with cardiology. Bradycardia: Her heart rate was in the 50s. Holding beta-blockers and calcium channel blockers for now. Outpatient follow-up with cardiology. Time spent is 40 minutes. More than 50% of the time was spent on patient education and coordination of care.
--- NOTE | 2024-08-04 12:33 | PC.NURSE ---
Patient discharged home with via private vehicle. Patient was transported to hospital's main entrance via wheelchair by PARBOILER. IV was discontinued x2, tolerated well. Tele monitor was discontinued. Discharge instructions were reviewed with patient and at bedside, understanding verbalized. Per patient she already has an appointment scheduled with her die inspector for today at 1500. Nursing care ended at this time.
== END 2024-08-04 12:33 | disposition home or self-care (01) ==
LOC: SERX 11:49 → S3NX 08-04 09:37 → SERHOLD 08-04 10:46 → S3NX 08-04 11:17 → SERHOLD 08-04 11:47
PROVIDERS: Nurse Practitioner Primary Care; Admitting Provider Student in an Organized Health Care Education/Training Program; Emergency Provider Emergency Medicine; PCP Internal Medicine Cardiovascular Disease; Visit Provider Student in an Organized Health Care Education/Training Program
DX: I21.A1 Myocardial infarction type 2 (principal); I48.92 Unspecified atrial flutter; I10 Essential (primary) hypertension; I47.19 Other supraventricular tachycardia; D50.9 Iron deficiency anemia, unspecified; D72.829 Elevated white blood cell count, unspecified; E04.1 Nontoxic single thyroid nodule; F17.200 Nicotine dependence, unspecified, uncomplicated; I48.91 Unspecified atrial fibrillation
CPT/HCPCS: 36415; 71045; 80053; 80061; 83036; 83735; 83880; 84100; 84439; 84443; 84484; 85025; 85610; 85730; 93005; 93225; 94762; 96360; 96361; 96365; 96366; 99291; G0378; J0283; J1643; J1644; J3490; J7040; A9270